=== PATIENT | male | born 1930 | race Caucasian/White ===

== ENCOUNTER 2017-12-09 14:27 | Emergency (ER) | payer MEDICARE, OTHER ==
[~2017-12-09] VITALS: Ht 172.7 cm; Wt 81.7 kg
[~2017-12-09 14:27] MED LIST: ADULT LOW DOSE81 MG PO; ADVIL200 M1 PO; ANTIVERT12.5 MG PO; AUGMENTIN 875-1 EACH PO; BARRIER CREAM TOP; BISACODYL10 MG PR; COL-RITE250 MG PO; DOXYCYCLINE HY100 MG PO; FLEXERIL10 MG PO; FLOMAX0.4 MG PO; FUROSEMIDE40 MG PO; KLOR-CON SPRINK8 MEQ PO; LANOXIN125 MCG PO; LEVAQUIN500 MG PO; LOPRESSOR50 MG PO; MAGOX 400400 MG PO; NEOSPORIN + P28.3 GM; NORCO 5-325 TA1 EACH PO; PERCOCET 5-3251 EACH PO; PREDNISONE20 MG PO; PROMETHAZI6.25 MG/5 PO; THERAPEUTIC M1 EAC2 PO; TOPROL XL50 MG PO; TRAZODONE HCL100 MG PO; TRAZODONE HCL150 MG PO; TRIAMTERENE-HC1 EAC3 PO; VITAMIN C1000 MG PO
[2017-12-09] MEDS ORDERED: COREG12.5 MG PO (14:48)
[2017-12-09] MEDS ORDERED: METHYLPREDNISOLO4 M1 PO (14:52)
== END 2017-12-09 15:17 | disposition home or self-care (01) ==
LOC: ED 14:27
DX: S39.012A Strain of muscle, fascia and tendon of lower back, initial encounter (principal); X58.XXXA Exposure to other specified factors, initial encounter; I10 Essential (primary) hypertension; Z87.891 Personal history of nicotine dependence; Z79.82 Long term (current) use of aspirin; Z79.899 Other long term (current) drug therapy
CPT/HCPCS: 99283